=== PATIENT | female | born 1990 | race Caucasian/White ===

== ENCOUNTER 2019-11-30 07:40 | Inpatient (IN) | payer BC ==
[~2019-11-30 07:40] MED LIST: Lidocaine 1.5% with EPINEPHrine 1:200,000 5 ML Amp ONE; Phenylephrine/Normal Saline 100 MCG/ML 10 ML Syringe ONE
[2019-11-30] MEDS ORDERED: Sodium Chloride 0.9% 10 ML Syringe FLUSH PRN (11:35)
[2019-11-30] MEDS ORDERED: Nalbuphine 10 MG/ML Syringe IVPUSH PRN (11:35)
--- NOTE | 2019-11-30 11:44 | PCM.LDHP ---
L&D History of Present Illness - General Date of Service: 11/30/19 Admit Problem/Dx: Admission Diagnosis/Problem Admission Diagnosis/Problem - History of Present Illness Introduction:: 29 year old at 39w3 here for induction of labor. 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: Psychiatric History: Reports: Other (See Below) Other Psychiatric History: PPD - Past Surgical History Respiratory Surgical History: Reports: None H&P Review of Systems - Review of Systems: Review Of Systems: See Below General: Reports: No Symptoms HEENT: Reports: No Symptoms Pulmonary: Reports: No Symptoms Cardiovascular: Reports: No Symptoms Gastrointestinal: Reports: No Symptoms Genitourinary: Reports: No Symptoms Musculoskeletal: Reports: No Symptoms Skin: Reports: No Symptoms Psychiatric: Reports: No Symptoms Neurological: Reports: No Symptoms Hematologic/Lymphatic: Reports: No Symptoms Immunologic: Reports: No Symptoms L&D Exam - Exam Exam: See Below - OB Specific Fundal Height In cm: 39 Contraction Intensity: Moderate to Strong Movement: Active Heart Tones: Present - Alvarez Score Alvarez Score Cervix Position: Midposition Alvarez Score Consistency: Soft Alvarez Score Effacement: 51-70% Alvarez Score Dilation: 3-4 cm Alvarez Score Infant's Station: -2 Alvarez Score Total: 8 - Exam General: Alert, Oriented HEENT: PERRLA, Conjunctiva Clear, EACs Clear, EOMI, Hearing Intact, Mucosa Moist & [place], Nares Patent, Normal Nasal Septum, Posterior Pharynx Clear, TMs Clear Neck: Supple, Trachea Midline Lungs: Clear to Auscultation, Normal Respiratory Effort Cardiovascular: Regular Rate, Regular Rhythm GI/Abdominal Exam: Normal Bowel Sounds, Soft, Non-Tender, No Organomegaly, No Distention, No Abnormal Bruit, No Mass, Pelvis Stable Extremities: Normal Inspection, Normal Range of Motion, Non-Tender, No Pedal Edema, Normal Capillary Refill Neurological: Cranial Nerves Intact, Reflexes Equal Bilateral Psychiatric: Alert, Normal Affect, Normal Mood Problem List Initiated/Reviewed/Updated: Yes Orders Last 24hrs: Active Orders 24 hr Category Date Time Status Activity as Tolerated [RC] PFP Care 11/30/19 11:35 Ordered Communication Order [RC] ASDIRECTED Care 11/30/19 11:35 Ordered Heart Tones [RC] ASDIRECTED Care 11/30/19 11:36 Ordered Non Stress Test [RC] PER UNIT ROUTINE Care 11/30/19 11:35 Ordered Notify Provider [RC] PFP Care 11/30/19 11:35 Ordered Notify Provider [RC] PRN Care 11/30/19 11:35 Ordered Peripheral IV Care [RC] . DIRECTED Care 11/30/19 11:36 Ordered Vital Signs [RC] PER UNIT ROUTINE Care 11/30/19 11:35 Ordered CBC W/O DIFF,HEMOGRAM [HEME] Stat Lab 11/30/19 11:35 Ordered CORONAVIRUS COVID-19 BELLO [MOLEC] Stat Lab 11/30/19 11:39 Ordered RAPID PLASMA REAGIN,RPR [CHEM] Routine Lab 11/30/19 11:35 Ordered TYPE AND SCREEN [BBK] Stat Lab 11/30/19 11:35 Ordered Lactated Ringers [Ringers, Lactated] 1,000 ml Med 11/30/19 11:45 Ordered IV ASDIRECTED Nalbuphine [Nubain] Med 11/30/19 11:35 Ordered 10 mg IVPUSH Q2H PRN Oxytocin/Lactated Ringers [Pitocin in LR 10 Units/1,000 Med 11/30/19 11:45 Ordered ML] 10 unit in 1,000 ml IV TITRATE Sodium Chloride 0.9% [Saline Flush] Med 11/30/19 11:35 Ordered 10 ml FLUSH ASDIRECTED PRN Electronic Heart Tones Ext w TOCO [WOMSER] Oth 11/30/19 11:35 Ordered Routine Electronic Heart Tones Internal [WOMSER] Per Unit Oth 11/30/19 11:35 Ordered Routine Peripheral IV Insertion Adult [OM.PC] Routine Oth 11/30/19 11:35 Ordered Resuscitation Status Routine Resus Stat 11/30/19 11:35 Ordered Medication Orders Oxytocin/Lactated Ringer's (Pitocin In Lr 10 Units/1,000 Ml) 10 unit in 1,000 mls @ 12 mls/hr IV TITRATE ESTER; Protocol Lactated Ringer's (Ringers, Lactated) 1,000 mls @ 100 mls/hr IV ASDIRECTED ESTER Nalbuphine HCl (Nubain) 10 mg IVPUSH Q2H PRN PRN Reason: Pain Sodium Chloride (Saline Flush) 10 ml FLUSH ASDIRECTED PRN PRN Reason: Keep Vein Open Assessment/Plan Comment:: 29 year old here for induction. History of rapid deliveries. AROM. Anticipate .
[2019-11-30] MEDS ORDERED: Oxytocin/Lactated Ringers 10 UNIT/1,000 ML BAG IV SCH (11:45)
[2019-11-30] MEDS: Lactated Ringers 1,000 ML IV SCH ×2 (13:57→17:10)
[2019-11-30] MEDS ORDERED: diphenhydrAMINE 50 MG/ML SDV IVPUSH PRN (16:40)
[2019-11-30] MEDS ORDERED: ePHEDrine 50 MG/ML SDV IVPUSH PRN (16:40)
[2019-11-30] MEDS ORDERED: Bupivacaine/fentaNYL/NS 100 ML Bag EPIDUR PRN (16:40)
[2019-11-30] MEDS ORDERED: fentaNYL 100 MCG/2 ML SDV EPIDUR PRN (16:40)
--- NOTE | 2019-11-30 17:07 | PCM.PREANE ---
Preanesthetic Assessment - Procedure Proposed Procedure: Continuous labor epidural - Anesthesia/Transfusion/Family Hx Anesthesia History: Prior Anesthesia Without Reaction Transfusion History: No Prior Transfusion(s) - Review of Systems General: No Symptoms Pulmonary: No Symptoms Cardiovascular: No Symptoms Gastrointestinal: No Symptoms Neurological: No Symptoms Other: Reports: None - Physical Assessment Vital Signs: Last Vital Signs Temp 98.6 F 11/30/19 11:35 Pulse 88 11/30/19 11:35 Resp 14 11/30/19 11:35 BP 115/75 11/30/19 11:35 Pulse Ox 93 L 11/30/19 11:35 Height: 1.7 m Weight: 95.708 kg ASA Class: 2 Mental Status: Alert & Oriented x3 Airway Class: Mallampati = 1 Dentition: Reports: Normal Dentition Thyro-Mental Finger Breadths: 3 Mouth Opening Finger Breadths: 3 ROM/Head Extension: Full Lungs: Clear to Auscultation, Normal Respiratory Effort Cardiovascular: Regular Rate, Regular Rhythm - Lab Values: Laboratory Last Values WBC 7.88 K/mm3 (3.98-10.04) 11/30/19 11:50 RBC 4.39 M/mm3 (3.98-5.22) 11/30/19 11:50 Hgb 11.4 gm/dl (11.2-15.7) 11/30/19 11:50 Hct 35.6 % (34.1-44.9) 11/30/19 11:50 MCV 81.1 fl (79.4-94.8) 11/30/19 11:50 MCH 26.0 pg (25.6-32.2) 11/30/19 11:50 MCHC 32.0 g/dl (32.2-35.5) L 11/30/19 11:50 RDW Std Deviation 41.2 fL (36.4-46.3) 11/30/19 11:50 Plt Count 215 K/mm3 (182-369) 11/30/19 11:50 MPV 11.8 fl (9.4-12.3) 11/30/19 11:50 COVID-19 (BELLO) Negative (NEGATIVE) 11/30/19 11:20 Blood Type A POSITIVE 11/30/19 11:50 Gel Antibody Screen Negative 11/30/19 11:50 - Allergies Allergies/Adverse Reactions: Allergies Allergy/AdvReac Type Severity Reaction Status Date / Time Penicillins Allergy Rash Verified 11/30/19 12:26 - Acknowledgements Anesthesia Type Planned: Epidural Pt an Appropriate Candidate for the Planned Anesthesia: Yes Alternatives and Risks of Anesthesia Discussed w Pt/Guardian: Yes Pt/Guardian Understands and Agrees with Anesthesia Plan: Yes PreAnesthesia Questionnaire - Past Health History Medical/Surgical History: Denies Medical/Surgical History Respiratory History: Reports: Asthma Other Respiratory History: Not on medication, well controlled 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: Psychiatric History: Reports: Other (See Below) Other Psychiatric History: PPD - Past Surgical History Respiratory Surgical History: Reports: None - SUBSTANCE USE Smoking Status *Q: Never Smoker Tobacco Use Within Last Twelve Months: No Recreational Drug Use History: No - HOME MEDS Home Medications: Home Meds Ferrous Sulfate [Iron] 325 mg PO DAILY 11/30/19 [History] Vits #93/Iron Fum/FA [ Formula Tablet] 1 each PO DAILY 11/30/19 [History] - CURRENT (IN HOUSE) MEDS Current Meds: Current Medications Diphenhydramine HCl (Benadryl) 25 mg IVPUSH Q6H PRN PRN Reason: pruritis Ephedrine Sulfate (Ephedrine Sulfate) 5 mg IVPUSH ASDIRECTED PRN PRN Reason: Hypotension Fentanyl (Sublimaze) 100 mcg EPIDUR Q3H PRN PRN Reason: Pain Fentanyl/Bupivacaine HCl (Fentanyl/Bupivacaine/Ns 2 Mcg-0.125% 100 Ml) 100 ml EPIDUR ASDIRECTED PRN PRN Reason: Pain Oxytocin/Lactated Ringer's (Pitocin In Lr 10 Units/1,000 Ml) 10 unit in 1,000 mls @ 12 mls/hr IV TITRATE ESTER; Protocol Last Titration: 11/30/19 15:07 Dose: 6 munits/min, 36 mls/hr Documented by: Lactated Ringer's (Ringers, Lactated) 1,000 mls @ 100 mls/hr IV ASDIRECTED ESTER Last Admin: 11/30/19 13:57 Dose: 100 mls/hr Documented by: Nalbuphine HCl (Nubain) 10 mg IVPUSH Q2H PRN PRN Reason: Pain Sodium Chloride (Saline Flush) 10 ml FLUSH ASDIRECTED PRN PRN Reason: Keep Vein Open
--- NOTE | 2019-11-30 18:56 | PCM.SN.2 ---
- Free Text/Narrative Note: Stage I - Patient presented for induction of labor for distance from hospital and term with history of fast labors. AROM, pitocin and epidural for anesthesia. Stage II - of viable female, weight 7#3oz, 8/9 APGARS at 1837. Head delivered in controlled manner over intact perineum. Body and shoulders atra umatically. To maternal abdomen. Positive cry. Cord clamped and cut. 3vc. Cord blood collected. Stage III - of intact placenta. Small 1st degree midline laceration repaired with 3-0 vicryl. EBL 150
[2019-11-30] MEDS ORDERED: Benzocaine/Menthol 20%-0.5% Spray 56 GM Canister TOP PRN (19:14)
[2019-11-30] MEDS ORDERED: Docusate Sodium 100 MG Cap PO PRN (19:14)
[2019-11-30] MEDS ORDERED: Simethicone 80 MG Tab.Chew PO PRN (19:14)
[2019-11-30] MEDS ORDERED: Hydrocortisone Acetate 25 MG Supp RECTAL PRN (19:14)
[2019-11-30] MEDS ORDERED: Witch Hazel Medicated Pads 40/Jar TOP PRN (19:14)
[2019-11-30] MEDS ORDERED: Ibuprofen 600 MG Tab PO PRN (19:14)
--- NOTE | 2019-12-01 07:32 | PCM48HPAN ---
Post Anesthesia Note - EVALUATION WITHIN 48HRS OF ANESTHETIC Vital Signs in Normal Range: Yes Patient Participated in Evaluation: Yes Respiratory Function Stable: Yes Airway Patent: Yes Cardiovascular Function Stable: Yes Hydration Status Stable: Yes Pain Control Satisfactory: Yes Nausea and Vomiting Control Satisfactory: Yes Mental Status Recovered: Yes Vital Signs: Last Vital Signs Temp 98.4 F 12/01/19 04:35 Pulse 72 12/01/19 04:35 Resp 16 12/01/19 04:35 BP 112/75 12/01/19 04:35 Pulse Ox 98 12/01/19 04:35
== END 2019-12-01 19:38 | disposition home or self-care (01) | DRG 560 ==
LOC: JD.OBCHECK 07:40 → JD.OB 07:43 → OBSVTOIN 18:43 → JD.OB 18:44
PROVIDERS: ADMIT Obstetrics & Gynecology; ATTEND Obstetrics & Gynecology
PROC: 10E0XZZ Delivery of Products of Conception, External Approach (ICD-10-PCS; principal; 2019-11-30)
PROC: 10907ZC Drainage of Amniotic Fluid, Therapeutic from Products of Conception, Via Natural or Artificial Opening (ICD-10-PCS; 2019-11-30)
PROC: 3E033VJ Introduction of Other Hormone into Peripheral Vein, Percutaneous Approach (ICD-10-PCS; 2019-11-30)
PROC: 0HQ9XZZ Repair Perineum Skin, External Approach (ICD-10-PCS; 2019-11-30)
PROC: 3E0R3BZ Introduction of Anesthetic Agent into Spinal Canal, Percutaneous Approach (ICD-10-PCS; 2019-11-30)
DX: O70.0 First degree perineal laceration during delivery (principal); Z3A.39 39 weeks gestation of pregnancy; Z37.0 Single live birth; Z20.828 Contact with and (suspected) exposure to other viral communicable diseases
CPT/HCPCS: 36415; 51701; 59025; 59409; 85027; 86592; 86850; 86900; 86901; A9270-GY; J2370; J2590; J3010; J7120; U0002